=== PATIENT | female | born 1955 ===

== ENCOUNTER 2019-09-12 16:17 | Inpatient (IN) | payer OTHER ==
[~2019-09-12] VITALS: Ht 157.5 cm; Wt 59.0 kg
[2019-09-12] MEDS ORDERED: NORVASC5 MG (16:55)
[2019-09-12] MEDS ORDERED: BISOPROLOL 2.5 MG (16:56)
[2019-09-20] MEDS ORDERED: BISOPROLOL FUMAR5 MG (15:03)
[2019-09-22] MEDS ORDERED: CLONAZEPAM1 MG PO (09:24)
[2019-09-22] MEDS ORDERED: AMOX1TAB5 PO (09:25)
[2019-09-22] MEDS ORDERED: PROTONIX40 MG PO (09:26)
== END 2019-09-22 10:00 | disposition home or self-care (01) | DRG 339 ==
LOC: ER 16:17 → SEC-K 23:42 → SURG 23:42
PROVIDERS: ADMIT Surgery; ATTEND Surgery
PROC: 0W9G00Z Drainage of Peritoneal Cavity with Drainage Device, Open Approach (ICD-10-PCS; 2019-09-13)
PROC: 0D9670Z Drainage of Stomach with Drainage Device, Via Natural or Artificial Opening (ICD-10-PCS; 2019-09-13)
PROC: 0DTJ0ZZ Resection of Appendix, Open Approach (ICD-10-PCS; principal; 2019-09-13 12:00)
DX: K35.33 Acute appendicitis with perforation, localized peritonitis, and gangrene, with abscess (principal); N39.0 Urinary tract infection, site not specified; K56.690 Other partial intestinal obstruction; E86.0 Dehydration; I10 Essential (primary) hypertension; B96.20 Unspecified Escherichia coli [E. coli] as the cause of diseases classified elsewhere; F17.200 Nicotine dependence, unspecified, uncomplicated; B96.1 Klebsiella pneumoniae [K. pneumoniae] as the cause of diseases classified elsewhere